=== PATIENT | female | born 1970 | race African-American/Black ===

== ENCOUNTER 2017-06-03 04:54 | Emergency (ER) | payer OTHER ==
[~2017-06-03] VITALS: Ht 172.7 cm; Wt 71.7 kg
[2017-06-03] MEDS ORDERED: LOPERAMIDE 2 MG2 M1 PO (05:06)
[2017-06-03] MEDS ORDERED: KAOPECTATE240 MG PO (05:07)
[2017-06-03 05:33] LABS: ABSOLUTE NEUTROPHILS 2.1 thou/uL (1.4-8.2); BASOPHILS 0.5 % (0.0-2.0); EOSINOPHILS 5.3 % (0.0-3.0); HEMATOCRIT 38.2 % (37.0-47.0); HEMOGLOBIN 12.4 gm/dL (12.0-15.0); LYMPHOCYTES 37.8 % (24.0-44.0); MCH 30.2 pg (26.0-34.0); MCHC 32.4 g/dL (28.0-37.0); MCV 93.3 fL (80.0-100.0); PLATELET COUNT 186 thou/uL (150-400); POLYS 48.4 % (36.0-66.0); RBC 4.09 mil/uL (4.20-5.00); RDW 13.8 % (10.5-14.5); WBC 4.3 thou/uL (4.0-11.0)
[2017-06-03 05:42] LABS: URINE BILIRUBIN NEGATIVE (Negative); URINE BLOOD 1+ (Negative); URINE CLARITY CLEAR; URINE COLOR YELLOW; URINE GLUCOSE-RANDOM* NEGATIVE (Negative); URINE KETONES NEGATIVE (Negative); URINE LEUKOCYTES-REFLEX NEGATIVE (Negative); URINE NITRITE-REFLEX NEGATIVE (Negative); URINE PROTEIN (DIPSTICK) NEGATIVE (Negative); URINE SPECIFIC GRAVITY >= 1.030 (1.005-1.035); URINE UROBILINOGEN 0.2 E.U./dl (0.2-1.0)
[2017-06-03 05:46] LABS: CALCIUM 9.2 mg/dL (8.5-10.1); POTASSIUM 4.6 mmol/L (3.5-5.1)
[2017-06-03 05:52] LABS: TOTAL BILIRUBIN 0.3 mg/dL (<0.1-1.0); TOTAL PROTEIN 7.2 g/dL (6.4-8.2)
[2017-06-03 06:05] LABS: SQUAMOUS >10 Many /LPF (0-3)
[2017-06-03 06:06] LABS: CASTS None Seen /LPF (None Seen); CRYSTALS None Seen /LPF (None Seen); URINE RBC 0-2 Rare /HPF (0-2); URINE WBC-REFLEX 0-5 Rare /HPF (0-5)
[2017-06-03] MEDS ORDERED: PHENERGAN 25 MG25 M1 PO (06:15)
[2017-06-03] MEDS ORDERED: ZOFRAN ODT4 MG PO (06:15)
== END 2017-06-03 06:34 | disposition home or self-care (01) ==
LOC: ER 04:54
PROVIDERS: Emergency Medicine
DX: K80.50 Calculus of bile duct without cholangitis or cholecystitis without obstruction (principal); F17.210 Nicotine dependence, cigarettes, uncomplicated; Z88.0 Allergy status to penicillin

== ENCOUNTER 2020-08-08 16:49 | Emergency (ER) | payer OTHER ==
[~2020-08-08] VITALS: Ht 172.7 cm; Wt 69.4 kg
--- NOTE | ~2020-08-08 | EMS ---
[facility] [address] [place] [address] EMS Patient Care Report Name: LIAN GOTTI Room #: REG CHRIS Santana#: [id number] Admission: 08/08/20 Attend Phys: Discharge: Date of : 68 Report #: [id number] THIS REPORT FOR: //name// Report Transmitted: 08/08/2020 18:46 EMS Care Summary [place], [place]/[facility] Incident [id number] @ 08/08/2020 16:08 Incident Location [address] [place] [address] Patient LIAN GOTTI Female, 50 Years 1970 Patient Address [address] [place] [id number] Patient History Gallbladder Disease, Patient Allergies Penicillin allergy, Chief Complaint NV ABD PAIN Disposition Transported No Lights/[place] Dispatch Reason Sick Person Transported To [facility] Narrative M41 DISPATCHED TO A SICK PERSON. M41 AOS AND FOUND A 50 YO FEMALE PT COMPLAINING OF NV AND ABD PAIN SINCE 5AM THIS MORNING. PT STATES THAT SHE HAS GALLBLADDER ISSUES AND THAT SHE HAS NOT [address] [address] EMS Patient Care Report Name: LIAN GOTTI [id number] Admission: 08/08/20 Attend Phys: Discharge: Date of : 68 Report #: [id number] BEEN ABLE TO KEEP ANYTHING DOWN. PT IS COMPLAINING OF RUQ ABD PAIN. PT STATES THAT SHE HAS NO OTHER COMPLAINTS. PT WALKED TO THE AMBULANCE . VITALS OBTAINED. BGA OBTAINED. 4 LEAD OBTAINED. PT GIVEN 4MG ZOFRAN PO. M[address] [facility]. EN ROUTE PT REMAINED STABLE. REPORT GIVEN TO RN [facility]. SIGNATURES OBTAINED. TRANSFER OF CARE TOOK PLACE. M41 IN SERVICE. [employer] Initial Vitals @16:25P: 58,CO: 0,SpO2: 99,KS Suspected: false @16:22P: 55,R: 18,BP: 172/81,Pain: 4/10,GCS: 15,Glucose: 119,SpO2: 98,Revised Trauma: 12, @16:29P: 56,R: 18,BP: 150/88,Pain: 4/10,GCS: 15,SpO2: 98,Revised Trauma: 12, Assessments @16:19MENTAL:Person Oriented,Time Oriented,Event Oriented,Place Oriented,SKIN:HEENT:Head/Face: No Abnormalities,Neck/Airway: No Abnormalities,LUNG SOUNDS:General: Vomiting,General: Nausea,Right Upper: Tenderness,ABDOMEN:General: Vomiting,General: Nausea,Right Upper: Tenderness,PELVIS//GI:No Abnormalities,EXTREMITIES:Capillary Refill: Right Upper: < 2 Sec,Left Arm: No Abnormalities,Right Arm: No Abnormalities,Left Leg: No Abnormalities,Right Leg: No Abnormalities,PULSE:Radial: 2+ Normal,NEURO:No Abnormalities, Impression Nausea Procedures @16:26Zofran - 4 Milligrams (mg) - OralResponse: Improved@16:243-Lead ECGResponse: UnchangedSucceeded@16:19ALS AssessmentResponse: UnchangedSucceeded Timeline 16:06,Call Received 16:06,Dispatch Notified 16:08,Dispatched 16:08,En Route 16:18,On Scene [facility] [address] [place] [address] EMS Patient Care Report Name: LIAN GOTTI Gabrielle Room #: REG CHRIS Santana#: [id number] Admission: 08/08/20 Attend Phys: Discharge: Date of : 68 Report #: [id number] 16:19,At Patient 16:19,ALS Assessment,Response: UnchangedSucceeded, 16:22,BP: 172/81 M,PULSE: 55,RR: 18 R,SPO2: 98 Ox,ETCO2: ,B,PAIN: 4,GCS: 15, 16:24,3-Lead ECG,Response: UnchangedSucceeded, 16:25,BP: / M,PULSE: 58,RR: R,SPO2: 99 Ox,ETCO2: ,BG: ,PAIN: ,GCS: , 16:26,Zofran - 4 Milligrams (mg) - Oral,Response: Improved 16:28,Depart Scene 16:29,BP: 150/88 M,PULSE: 56,RR: 18 R,SPO2: 98 Ox,ETCO2: ,BG: ,PAIN: 4,GCS: 15, 16:44,At Destination 17:14,Call Closed Disclaimer [email or web address] Copyright 2020 [employer] This EMS Care Summary contains data elements from the applicable legal record (which may be displayed differently). It is designed to provide pertinent information for the following purposes: continuity of care, clinical quality, and state data reporting. The complete legal record is available to ED staff and administrators of the receiving hospital in [employer]'s Patient Tracker. All data is provided "as is."
[~2020-08-08 16:49] MED LIST: KAOPECTATE240 MG PO; LOPERAMIDE 2 MG2 M1 PO; PHENERGAN 25 MG25 M1 PO; ZOFRAN ODT4 MG PO
[2020-08-08 18:19] LABS: ABSOLUTE NEUTROPHILS 7.3 thou/uL (1.4-8.2); BASOPHILS 0.3 % (0.0-2.0); HEMATOCRIT 39.8 % (37.0-47.0); HEMOGLOBIN 13.1 gm/dL (12.0-15.0); MCH 30.7 pg (26.0-34.0); MCV 93.2 fL (80.0-100.0); MONOCYTES 3.5 % (1.0-8.0); PLATELET COUNT 198 thou/uL (150-400); POLYS 88.2 % (36.0-66.0); RBC 4.27 mil/uL (4.20-5.00); RDW 14.1 % (10.5-14.5); WBC 8.2 thou/uL (4.0-11.0)
[2020-08-08 18:39] LABS: CREATININE 0.9 mg/dL (0.6-1.0); POTASSIUM 4.1 mmol/L (3.5-5.1)
[2020-08-08 18:40] LABS: CALCIUM 9.9 mg/dL (8.5-10.1)
[2020-08-08 18:44] LABS: ALBUMIN 4.5 g/dL (3.4-5.0); TOTAL BILIRUBIN 0.6 mg/dL (0.2-1.0)
[2020-08-08 18:44] LABS: URINE BILIRUBIN NEGATIVE (Negative); URINE BLOOD 1+ (Negative); URINE CLARITY CLEAR; URINE COLOR YELLOW; URINE GLUCOSE-RANDOM* NEGATIVE (Negative); URINE KETONES NEGATIVE (Negative); URINE LEUKOCYTES-REFLEX NEGATIVE (Negative); URINE NITRITE-REFLEX NEGATIVE (Negative); URINE PROTEIN (DIPSTICK) NEGATIVE (Negative); URINE UROBILINOGEN 0.2 E.U./dl (0.2-1.0)
[2020-08-08 18:56] LABS: AMP/METHAMP Negative (Negative); BARBITURATES Negative (Negative); BENZODIAZEPINES Negative (Negative); COCAINE Negative (Negative); METHADONE Negative (Negative); OPIATES Negative (Negative); PCP Negative (Negative)
[2020-08-08 18:59] LABS: BACTERIA-REFLEX 1-9 Few /HPF (None Seen); CASTS None Seen /LPF (None Seen); SQUAMOUS 0-3 Few /LPF (0-3); URINE RBC 3-10 Few /HPF (NONE SEEN); URINE WBC-REFLEX 0-5 Rare /HPF (0-5)
[2020-08-08 19:00] LABS: CRYSTALS None Seen /LPF (None Seen)
[2020-08-08] MEDS ORDERED: HALOPERIDOL 2 MG2 MG PO (19:54)
[2020-08-08 20:22] VITALS: BP 123/72
== END 2020-08-08 20:23 | disposition home or self-care (01) ==
LOC: ER 16:49
PROVIDERS: Emergency Medicine
DX: R10.84 Generalized abdominal pain (principal); R11.2 Nausea with vomiting, unspecified; F17.210 Nicotine dependence, cigarettes, uncomplicated; Z88.0 Allergy status to penicillin; Z79.899 Other long term (current) drug therapy; Z90.49 Acquired absence of other specified parts of digestive tract